=== PATIENT | male | born 1975 | race Caucasian/White ===

== ENCOUNTER 2020-01-31 14:58 | Emergency (ER) | payer OTHER ==
[~2020-01-31] VITALS: Ht 170.2 cm; Wt 90.0 kg
[2020-01-31 14:58] VITALS: BP 143/77
--- NOTE | 2020-01-31 15:52 | PHYS DOC ---
Past History Past Medical History: No Pertinent History Past Surgical History: No Surgical History Alcohol Use: None General Adult EDM: Chief Complaint: SKIN PROBLEM HPI: HPI: 44-year-old male past medical history of depression and chronic back pain, presents the ED with complaints of pruritic rash that started on his right elbow and has spread to bilateral hands and forearms for the past 2 weeks. Patient states is getting worse and spreading up his arms. Has been using calamine lotion, Benadryl cream and anti-itch spray (currently not pruritic because of this). Patient states his dogs have been running through [employer] and he has been petting them. No prior history of allergic reaction, anaphylaxis, angioedema or hospitalization. Denies any mucous membrane rash. Review of systems: Denies associated fever, chills, headache, neck stiffness, cough, sore throat, chest pain, dyspnea, hemoptysis, nausea, vomiting, diarrhea, abdominal pain, leg swelling, anuria, diaphoresis, oral rashes, facial swelling, neck swelling. Review of Systems: Review of Systems: Psychiatric: Denies depression or anxiety Heart Score: Risk Factors: Risk Factors: DM, Current or recent (<one month) smoker, HTN, HLP, family history of CAD, obesity. Risk Scores: Score 0 - 3: 2.5% MACE over next 6 weeks - Discharge Home Score 4 - 6: 20.3% MACE over next 6 weeks - Admit for Clinical Observation Score 7 - 10: 72.7% MACE over next 6 weeks - Early Invasive Strategies Allergies: Allergies: Allergies Coded Allergies Type Severity Reaction Last Updated Verified No Known Drug Allergies 01/31/20 No Physical Exam: PE: Constitutional: Well developed, well nourished, no acute distress, non-toxic appearance. [] HENT: Normocephalic, atraumatic, bilateral external ears normal, oropharynx moist no ulcers or erosions Eyes: EOMI, conjunctiva normal, no discharge. [] Neck: Normal range of motion, no tenderness, supple, no stridor. [] Cardiovascular:Heart rate regular rhythm, no murmur [] Lungs & Thorax: Bilateral breath sounds clear to auscultation [] Abdomen: Bowel sounds normal, soft, no tenderness, no masses, no pulsatile masses. [] Skin: Warm, dry, very small asymmetric vessels of her hands and upper extremity with erythematous base, no surrounding erythema or fluctuance or crepitus Back: No tenderness, no CVA tenderness. [] Extremities: No tenderness, no cyanosis, no clubbing, ROM intact, no edema. [] Neurologic: Alert and oriented X 3, normal motor function, normal sensory function, no focal deficits noted. [] Psychologic: Affect normal, judgement normal, mood normal. [] Current Patient Data: Vital Signs: Vital Signs Date Time Temp Pulse Resp B/P (MAP) Pulse Ox O2 Delivery O2 Flow Rate FiO2 01/31/20 14:58 98.1 50 18 143/77 (99) 97 Room Air EKG: EKG: [] Radiology/Procedures: Radiology/Procedures: [] Course & Med Decision Making: Course & Med Decision Making Pertinent Labs and Imaging studies reviewed. (See chart for details) Concern for bilateral upper extremity contact dermatitis likely related to poison yolis. Patient nontoxic-appearing with no mucous membrane involvement. Rash is limited to his upper extremities. In addition the patient's current [id number] medications, I recommended cool compresses, oatmeal baths and a prednisone steroid taper. Encourage PMD follow-up for reevaluation in 3 to 5 days. Strict ED return precautions were given for worsening rash, difficulties breathing or facial swelling. Encouraged urgent outpatient follow-up with PMD. Life-threatening processes were considered but are low suspicion at this time, given history and physical exam. Pt was educated on all prescription medications and adverse effects. All patient's questions were answered and pt was stable at time of discharge. Differential includes erythema multiforme, justice-calvin syndrome, toxic epidermal necrolysis, staphylococcal scalded skin syndrome, necrotizing fasciitis/myositis/cellulitis, purpura fulminans, heparin or warfarin induced skin necrosis, drug rash, disseminated intravascular coagulation, disseminated gonococcal disease, vasculitis, septicemia, petechial disorder or coagulopathy, I spoken with the patient and her caregivers. I explained the patient's condition, diagnoses and treatment plan based on the information available to me at this time. I have answered the patient and her caregiver's questions and addressed any concerns. The patient and her caregivers have a good understanding of patient's diagnosis, condition and treatment plan as can be expected at this point. Vital signs have been stable. Patient's condition is stable and appropriate for discharge from the emergency department. Patient will pursue further outpatient evaluation with primary care physician or other designated or consulting physician as outlined in the discharge instructions. The patient and/or caregivers are agreeable to this plan of care and follow-up instructions have been explained in detail. The patient and/or caregivers have received these instructions in written form and have expressed an understanding of the discharge instructions. The patient and/or caregivers are aware that any significant change of condition or worsening of symptoms should prompt immediate return to this or the closest emergency department or call to [facility]. Tracy Disclaimer: Tracy Disclaimer: This electronic medical record was generated, in whole or in part, using a voice recognition dictation system. Departure Departure: Impression: Primary Impression: Poison yolis dermatitis Disposition: HOME/RESIDENCE PRIOR TO ADM Condition: STABLE Referrals: DEYANIRA RONQUILLO (PCP) Patient Instructions: Poison Yolis Additional Instructions: Bell Real MD in 3-5 days for wound check [facility] Address: [address] [place] [address] Scripts Prednisone (PREDNISONE) 10 Mg Tablet 10 MG PO DAILY PRN for itching MDD 40, #40 TAB Takes 4 tablets daily for 4 days, then 3 tablets daily for 4 days, then 2 tablets daily for 4 days, then one tablet daily for 4 days Prov: JOSE CARTER DO 01/31/20 Justification of Admission: Justification of Admission: Justification of Admission Dx: N/A JOSE CARTER DO Jan 31, 2020 15:52
[2020-01-31] MEDS ORDERED: PRED-220 PO (16:01)
== END 2020-01-31 16:50 | disposition home or self-care (01) ==
LOC: ER 14:58
DX: L23.7 Allergic contact dermatitis due to plants, except food (principal); G89.29 Other chronic pain; F32.9 Major depressive disorder, single episode, unspecified
CPT/HCPCS: 99283

== ENCOUNTER 2021-02-11 05:08 | Emergency (ER) | payer OTHER ==
[~2021-02-11] VITALS: Ht 185.4 cm; Wt 102.4 kg
[~2021-02-11 05:08] MED LIST: PRED-220 PO
[2021-02-11] MEDS ORDERED: DEXAMETHASONE SOD PHOS 10 MG/ML VIAL. IM ONE (05:30)
[2021-02-11] MEDS ORDERED: DEXAMETHASONE SOD PHOS 10 MG/ML VIAL. ONE (05:31)
[2021-02-11] MEDS ORDERED: PRED-220 PO (05:32)
[2021-02-11] MEDS ORDERED: TRIA15CR50 TP (05:32)
--- NOTE | 2021-02-11 05:32 | PHYS DOC ---
Past History Past Medical History: No Pertinent History Past Surgical History: No Surgical History Alcohol Use: None General Adult EDM: Chief Complaint: ITCHING HPI: HPI: 45-year-old male presents with rash. The patient was pulling up weeds at home yesterday and this morning he has intensely pruritic forearms, hands, and an area around his right eye. The patient has had poison yolis in the past. He states that this feels similar. He is most concerned because his right eye was almost swollen shut when he woke up this morning. He denies any visual changes or disturbance. He has no other complaints this time. Review of Systems: Review of Systems: Constitutional: Denies fever or chills Eyes: Denies change in visual acuity HENT: Denies nasal congestion or sore throat Respiratory: Denies cough or shortness of breath Cardiovascular: Denies chest pain or edema GI: Denies abdominal pain, nausea, vomiting, bloody stools or diarrhea : Denies dysuria Musculoskeletal: Denies back pain or joint pain Integument: Rash Neurologic: Denies headache, focal weakness or sensory changes Endocrine: Denies polyuria or polydipsia Lymphatic: Denies swollen glands Psychiatric: Denies depression or anxiety Allergies: Allergies: Allergies Coded Allergies Type Severity Reaction Last Updated Verified No Known Drug Allergies 01/31/20 No Physical Exam: PE: Constitutional: Well developed, well nourished, no acute distress, non-toxic appearance. [] HENT: Normocephalic, atraumatic, bilateral external ears normal, oropharynx moist, no oral exudates, nose normal. [] Eyes: PERRLA, EOMI, conjunctiva normal, no discharge. [] Neck: Normal range of motion, no tenderness, supple, no stridor. [] Cardiovascular:Heart rate regular rhythm, no murmur [] Lungs & Thorax: Bilateral breath sounds clear to auscultation [] Abdomen: Bowel sounds normal, soft, no tenderness, no masses, no pulsatile masses. [] Skin: Scattered papules of the bilateral forearms, hands, and area superior to the right eye [] Back: No tenderness, no CVA tenderness. [] Extremities: No tenderness, no cyanosis, no clubbing, ROM intact, no edema. [] Neurologic: Alert and oriented X 3, normal motor function, normal sensory function, no focal deficits noted. [] Psychologic: Affect normal, judgement normal, mood normal. [] EKG: EKG: [] Radiology/Procedures: Radiology/Procedures: [] Heart Score: C/O Chest Pain: N/A Risk Factors: Risk Factors: DM, Current or recent (<one month) smoker, HTN, HLP, family history of CAD, obesity. Risk Scores: Score 0 - 3: 2.5% MACE over next 6 weeks - Discharge Home Score 4 - 6: 20.3% MACE over next 6 weeks - Admit for Clinical Observation Score 7 - 10: 72.7% MACE over next 6 weeks - Early Invasive Strategies Course & Med Decision Making: Course & Med Decision Making Pertinent Labs and Imaging studies reviewed. (See chart for details) The patient's history and physical exam is consistent with poison yolis dermatitis or similar plant-based reaction. I will treat the patient with 10 mg of Decadron IM followed by prednisone taper. We will also give him triamcinolone cream for the arms and hands. I have instructed him not to use the cream on his face. He is stable for discharge at this time. [] Dragon Disclaimer: Dragon Disclaimer: This electronic medical record was generated, in whole or in part, using a voice recognition dictation system. Departure Departure: Impression: Primary Impression: Poison yolis dermatitis Disposition: HOME / SELF CARE / HOMELESS Condition: STABLE Referrals: DEYANIRA RONQUILLO (PCP) Patient Instructions: Poison Yolis, [id number] Scripts Triamcinolone Acetonide (TRIAMCINOLONE ACETONIDE 0.5% CREAM) 15 Gm Cream..g. 1 LARA TP BID PRN for RASH for 7 Days, #30 GM Prov: BARB JENSEN DO 02/11/21 Prednisone (PREDNISONE) 10 Mg Tablet 10 MG PO UD for PREDNISONE TAPER, #30 TAB 0 Refills Take 5 tablets by mouth daily for 2 days, then take 4 tablets by mouth daily for 2 days, then take 3 tablets by mouth daily for 2 days, then take 2 tablet by mouth daily for 2 days, then take 1 tablet by mouth daily for 2 days, then stop. Prov: BARB JENSEN DO 02/11/21 BARB JENSEN DO Feb 11, 2021 05:32
[2021-02-11 05:40] VITALS: BP 120/84
== END 2021-02-11 05:44 | disposition home or self-care (01) ==
LOC: ER 05:08
DX: L23.7 Allergic contact dermatitis due to plants, except food (principal); Z59.0 Homelessness
CPT/HCPCS: 96372; 99283; J1100